=== PATIENT | male | born 1965 | race Caucasian/White ===

== ENCOUNTER 2022-08-11 12:38 | Inpatient (IN) | payer OTHER, SELFPAY ==
[~2022-08-11 12:38] MED LIST: Iopamidol-370 76% 500 ML 1 ML ONE
[2022-08-11] MEDS ORDERED: Diltiazem 125 MG/25 ML ONE (13:11)
[2022-08-11] MEDS ORDERED: Magnesium 2 GM/50 ML BAG (IN WATER) ONE (13:11)
[2022-08-11] MEDS ORDERED: Aspirin Chewable 81 MG TAB ONE (13:24)
[2022-08-11 13:36] LABS: #Basophils 0.1 thou/uL (0.0-0.2); #Eosinphils 0.1 thou/uL (0.0-0.7); #Monocytes 0.9 thou/uL (0.11-0.59); #Neutrophils 7.5 thou/uL (1.40-6.50); %Basophils 0.5 % (0.0-1.0); %Eosinophils 1.2 % (0.0-10.0); %Lymphocytes 18.8 % (21.0-51.0); %Monocytes 8.9 % (0.0-10.0); %Neutrophils 70.6 % (42.0-75.0); Hemoglobin 15.1 g/dL (14.0-18.0); Mean Corpuscular HGB CONC 32.5 g/dL (32.0-36.0); Mean Corpuscular Hemoglobin 30.8 pg (27.0-31.0); Mean Corpuscular Volume 94.8 fl (78.0-98.0); Mean Platelet Volume 9.2 fL (7.4-10.4); Platelet Count 137 10x3/uL (130-400); RBC Distribution Width 12.8 % (11.5-14.5); Red Blood Cell (RBC) Count 4.91 mill/uL (4.70-6.10); White Blood Cell (WBC) Count 10.6 10x3/uL (4.8-10.8)
[2022-08-11 13:59] LABS: ALT (SGPT) 58 U/L (8-55); AST (SGOT) 64 U/L (5-34); Albumin 3.6 g/dL (3.5-5.0); Alkaline Phosphatase 132 U/L (40-110); Anion Gap 14 mmol/L (10-20); BUN (Urea Nitrogen) 10 mg/dL (8.4-25.7); Bilirubin, Total 1.1 mg/dL (0.2-1.2); CK (CPK) 127 U/L (30-200); Calc. Creatinine Clearance 0 mL/min (70-130); Calcium 9.4 mg/dL (7.8-10.44); Carbon Dioxide 27 mmol/L (22-29); Chloride 100 mmol/L (98-107); Estimated GFR 104; Globulin 4.1 g/dL (2.4-3.5); Glucose 149 mg/dL (70-105); Lipase 106 U/L (8-78); Potassium 3.9 mmol/L (3.5-5.1); Protein, Total 7.7 g/dL (6.0-8.3); Sodium 137 mmol/L (136-145)
[2022-08-11 15:19] LABS: Bilirubin Negative (Negative); Blood, Urine Negative (Negative); Clarity Clear (Clear); Glucose, Urine (Dipstick) Normal (Negative); Ketone, Urine Negative (Negative); Leukocyte Negative Leu/uL (Negative); Nitrite Negative (Negative); Protein, Urine (Dipstick) Negative (Neg-Trace); Specific Gravity, Urine 1.006 (1.002-1.036); Urobilinogen Normal mg/dL (Less than 2)
[2022-08-11 15:27] LABS: Amphetamine Not Detected (NotDetected); Barbiturates Screen Not Detected (NotDetected); Benzodiazepine Screen Not Detected (NotDetected); Cocaine Metabolite Screen Not Detected (NotDetected); Methadone Not Detected (NotDetected); Methamphetamine Not Detected (NotDetected); Opiate Screen Not Detected (NotDetected); Oxycodone Screen Not Detected (NotDetected); Phencyclidine (PCP) Not Detected (NotDetected); THC/Cannabinoid Screen Not Detected (NotDetected); Tricyclic Screen Not Detected (NotDetected)
[2022-08-11 16:14] LABS: Magnesium 1.9 mg/dL (1.6-2.6)
[2022-08-11] MEDS ORDERED: Diltiazem 125 MG in Sodium Chloride 0.9% 100 ML IVPB SCH (16:45)
[2022-08-11 17:29] LABS: SARS-CoV-2 NAA Rapid Test Not Detected (NotDetected)
[2022-08-11] MEDS ORDERED: Nitroglycerin 0.4 MG TAB (25 Tab Bottle) SL PRN (17:51)
[2022-08-11] MEDS ORDERED: Acetaminophen 325 MG TAB PO PRN (17:53)
[2022-08-11] MEDS ORDERED: Senokot S 8.6-50 MG TAB PO PRN (17:53)
[2022-08-11] MEDS ORDERED: Ondansetron PF 4 MG/2 ML Vial IVP PRN (17:53)
[2022-08-11] MEDS ORDERED: Bisacodyl 10 MG SUPP PR PRN (17:53)
[2022-08-11] MEDS ORDERED: Calcium Carbonate 500 MG ChewTAB PO PRN (17:53)
[2022-08-11] MEDS ORDERED: Ondansetron ODT 4 MG TAB PO PRN (17:53)
[2022-08-11] MEDS ORDERED: Lorazepam 1 MG TAB PO PRN (17:56)
[2022-08-11] MEDS ORDERED: Lorazepam 2 MG/ML VIAL IM PRN (17:56)
[2022-08-11] MEDS ORDERED: Electrolyte Replacement Protocol FS SCH (18:00)
[2022-08-11] MEDS ORDERED: Multivit, Therapeutic 1 TAB PO SCH (18:15)
[2022-08-11 18:16] VITALS: BMI 31.3
[2022-08-11 18:55] LABS: Troponin I 0.013 ng/mL (< 0.028)
[2022-08-11] MEDS: Thiamine 100 MG TAB PO SCH (20:13)
[2022-08-11] MEDS: Folic Acid 1 MG TAB PO SCH (20:13)
[2022-08-11] MEDS ORDERED: Metoprolol Tartrate 25 MG TAB PO SCH (21:00)
[2022-08-12 05:02] LABS: #Basophils 0.1 thou/uL (0.0-0.2); #Eosinphils 0.4 thou/uL (0.0-0.7); #Monocytes 0.9 thou/uL (0.11-0.59); #Neutrophils 5.1 thou/uL (1.40-6.50); %Basophils 0.8 % (0.0-1.0); %Eosinophils 4.5 % (0.0-10.0); %Lymphocytes 23.5 % (21.0-51.0); %Monocytes 10.3 % (0.0-10.0); %Neutrophils 60.8 % (42.0-75.0); Hemoglobin 13.8 g/dL (14.0-18.0); Mean Corpuscular HGB CONC 33.5 g/dL (32.0-36.0); Mean Corpuscular Hemoglobin 31.8 pg (27.0-31.0); Mean Platelet Volume 9.4 fL (7.4-10.4); Platelet Count 122 10x3/uL (130-400); RBC Distribution Width 12.7 % (11.5-14.5); Red Blood Cell (RBC) Count 4.33 mill/uL (4.70-6.10); White Blood Cell (WBC) Count 8.4 10x3/uL (4.8-10.8)
[2022-08-12 05:20] LABS: ALT (SGPT) 48 U/L (8-55); AST (SGOT) 51 U/L (5-34); Albumin 3.1 g/dL (3.5-5.0); Alkaline Phosphatase 113 U/L (40-110); Anion Gap 11 mmol/L (10-20); BUN (Urea Nitrogen) 10 mg/dL (8.4-25.7); Bilirubin, Total 1.2 mg/dL (0.2-1.2); Calc. Creatinine Clearance 171 mL/min (70-130); Calcium 8.5 mg/dL (7.8-10.44); Carbon Dioxide 27 mmol/L (22-29); Chloride 103 mmol/L (98-107); Estimated GFR 107; Globulin 3.6 g/dL (2.4-3.5); Glucose 143 mg/dL (70-105); Magnesium 1.8 mg/dL (1.6-2.6); Potassium 4.1 mmol/L (3.5-5.1); Protein, Total 6.7 g/dL (6.0-8.3); Sodium 137 mmol/L (136-145)
[2022-08-12 05:30] LABS: Hemoglobin A1c 6.9 % (4.0-6.0)
[2022-08-12] MEDS ORDERED: Magnesium 2 GM/50 ML(in water) 2 GM in Premix Bag 1 BAG IVPB SCH (08:00)
[2022-08-12] MEDS ORDERED: FLU VACC QS2022-23(6MOS UP)/PF 60 MCG/0.5 ML SYRINGE IM ONE (09:00)
[2022-08-12] MEDS: Multivit, Therapeutic 1 TAB PO SCH (09:32)
[2022-08-12] MEDS: Cyanocobalamin (Vitamin B-12) 1,000 MCG TAB PO SCH (09:32)
[2022-08-12] MEDS: Aspirin 81 mg Enteric Coated Tablet PO SCH (09:32)
[2022-08-12] MEDS: Lorazepam 1 MG TAB PO SCH ×3 (09:33→21:59)
[2022-08-12] MEDS: Digoxin 0.5 MG/2 ML AMP SLOW IVP SCH ×3 (16:27→22:51)
[2022-08-12] MEDS ORDERED: Lorazepam 1 MG TAB PO PRN (17:56)
[2022-08-12] MEDS: Apixaban 5 MG TAB PO SCH (21:57)
[2022-08-12] MEDS: Folic Acid 1 MG TAB PO SCH (21:57)
[2022-08-12] MEDS: Thiamine 100 MG TAB PO SCH (21:58)
[2022-08-13 04:59] LABS: #Eosinphils 0.3 thou/uL (0.0-0.7); #Neutrophils 5.2 thou/uL (1.40-6.50); %Basophils 0.4 % (0.0-1.0); %Eosinophils 3.9 % (0.0-10.0); %Lymphocytes 23.6 % (21.0-51.0); %Neutrophils 60.2 % (42.0-75.0); Hemoglobin 14.1 g/dL (14.0-18.0); Mean Corpuscular HGB CONC 33.1 g/dL (32.0-36.0); Mean Corpuscular Hemoglobin 31.3 pg (27.0-31.0); Mean Corpuscular Volume 94.7 fl (78.0-98.0); Mean Platelet Volume 9.3 fL (7.4-10.4); Platelet Count 117 10x3/uL (130-400); RBC Distribution Width 12.6 % (11.5-14.5); White Blood Cell (WBC) Count 8.6 10x3/uL (4.8-10.8)
[2022-08-13 05:07] LABS: Anion Gap 11 mmol/L (10-20); BUN (Urea Nitrogen) 9 mg/dL (8.4-25.7); Calc. Creatinine Clearance 187 mL/min (70-130); Calcium 8.5 mg/dL (7.8-10.44); Carbon Dioxide 24 mmol/L (22-29); Chloride 106 mmol/L (98-107); Estimated GFR 110; Glucose 142 mg/dL (70-105); Magnesium 1.9 mg/dL (1.6-2.6); Potassium 3.8 mmol/L (3.5-5.1); Sodium 137 mmol/L (136-145)
[2022-08-13] MEDS: Digoxin 0.5 MG/2 ML AMP SLOW IVP SCH ×2 (05:32→11:34)
[2022-08-13] MEDS ORDERED: Magnesium 2 GM/50 ML(in water) 2 GM in Premix Bag 1 BAG IVPB SCH (08:00)
[2022-08-13] MEDS: Lorazepam 1 MG TAB PO SCH (08:05)
[2022-08-13] MEDS: Multivit, Therapeutic 1 TAB PO SCH (08:05)
[2022-08-13] MEDS: Cyanocobalamin (Vitamin B-12) 1,000 MCG TAB PO SCH (08:05)
[2022-08-13] MEDS: Apixaban 5 MG TAB PO SCH (08:05)
[2022-08-13] MEDS: Aspirin 81 mg Enteric Coated Tablet PO SCH (08:05)
[2022-08-13] MEDS ORDERED: Potassium Chloride 20 MEQ TAB PO SCH (10:00)
[2022-08-13 11:39] VITALS: BP 156/81; TEMP 97.7
[2022-08-13] MEDS ORDERED: Lorazepam 1 MG TAB PO PRN (17:56)
[2022-08-14] MEDS ORDERED: Lorazepam 0.5 MG TAB PO PRN (17:56)
== END 2022-08-13 12:33 | disposition home or self-care (01) | DRG 310 ==
LOC: ERS 12:38 → 2NO 14:51 → ERHOLD 14:51 → 2NO 17:44
PROVIDERS: ADMIT Internal Medicine; ATTEND Internal Medicine
DX: I48.91 Unspecified atrial fibrillation (principal); K21.9 Gastro-esophageal reflux disease without esophagitis; I10 Essential (primary) hypertension; F41.9 Anxiety disorder, unspecified; F43.10 Post-traumatic stress disorder, unspecified; Z20.822 Contact with and (suspected) exposure to COVID-19; F10.20 Alcohol dependence, uncomplicated; E83.42 Hypomagnesemia; E66.9 Obesity, unspecified; E11.65 Type 2 diabetes mellitus with hyperglycemia; D69.6 Thrombocytopenia, unspecified; Z98.890 Other specified postprocedural states; Z79.899 Other long term (current) drug therapy; Z87.891 Personal history of nicotine dependence; Z68.31 Body mass index [BMI] 31.0-31.9, adult
CPT/HCPCS: 36415; 36416; 71045; 71275; 80048; 80053; 80306; 81003; 82550; 83036; 83690; 83735; 83880; 84443; 84484; 85025; 85379; 93005; 93306; 94760; J1160; J1650; J3475; Q9967; U0002

== ENCOUNTER 2022-09-22 11:44 | Emergency (ER) | payer OTHER ==
[2022-09-22 12:13] LABS: #Eosinphils 0.3 thou/uL (0.0-0.7); #Lymphocytes 1.7 thou/uL (1.20-3.40); #Monocytes 0.7 thou/uL (0.11-0.59); #Neutrophils 5.1 thou/uL (1.40-6.50); %Basophils 0.5 % (0.0-1.0); %Eosinophils 3.4 % (0.0-10.0); %Lymphocytes 21.7 % (21.0-51.0); %Monocytes 8.4 % (0.0-10.0); Hemoglobin 13.7 g/dL (14.0-18.0); Mean Corpuscular HGB CONC 32.8 g/dL (32.0-36.0); Mean Corpuscular Hemoglobin 30.7 pg (27.0-31.0); Mean Corpuscular Volume 93.4 fl (78.0-98.0); Mean Platelet Volume 8.5 fL (7.4-10.4); Platelet Count 129 10x3/uL (130-400); RBC Distribution Width 12.7 % (11.5-14.5); Red Blood Cell (RBC) Count 4.47 mill/uL (4.70-6.10); White Blood Cell (WBC) Count 7.7 10x3/uL (4.8-10.8)
[2022-09-22 12:55] LABS: ALT (SGPT) 40 U/L (8-55); AST (SGOT) 43 U/L (5-34); Albumin 3.5 g/dL (3.5-5.0); Alkaline Phosphatase 115 U/L (40-110); Anion Gap 15 mmol/L (10-20); BUN (Urea Nitrogen) 11 mg/dL (8.4-25.7); Bilirubin, Total 0.6 mg/dL (0.2-1.2); Calc. Creatinine Clearance 0 mL/min (70-130); Calcium 8.6 mg/dL (7.8-10.44); Carbon Dioxide 22 mmol/L (22-29); Chloride 100 mmol/L (98-107); Estimated GFR 103; Globulin 3.5 g/dL (2.4-3.5); Glucose 332 mg/dL (70-105); Lipase 69 U/L (8-78); Potassium 3.8 mmol/L (3.5-5.1); Sodium 133 mmol/L (136-145)
[2022-09-22] MEDS ORDERED: Digoxin 0.125 MG TAB ONE (13:21)
[2022-09-22] MEDS ORDERED: Digoxin 0.125 MG TAB PO SCH (13:30)
[2022-09-22] MEDS ORDERED: Insulin Regular 300 UNITS/3 ML VIAL ONE (14:23)
== END 2022-09-22 14:36 | disposition home or self-care (01) ==
LOC: ERS 11:44
DX: I48.91 Unspecified atrial fibrillation (principal); R73.9 Hyperglycemia, unspecified; K21.9 Gastro-esophageal reflux disease without esophagitis; I10 Essential (primary) hypertension; F17.290 Nicotine dependence, other tobacco product, uncomplicated
CPT/HCPCS: 36415; 71045; 80053; 83690; 84484; 85025; 93005; 94760; J1815